=== PATIENT | female | born 1960 | race Caucasian/White ===

== ENCOUNTER 2018-03-14 08:36 | Day surgery (SDC) | payer OTHER ==
[~2018-03-14] VITALS: Ht 157.5 cm; Wt 70.3 kg
[2018-03-14] MEDS ORDERED: MIDAZOLAM 2 MG/2 ML VIAL ONE ×2 (10:02→10:21)
[2018-03-14] MEDS ORDERED: fentaNYL 0.05 MG/ML VIAL ONE (10:02)
[2018-03-14] MEDS ORDERED: LIDOCAINE 2% 100 MG/5 ML UJET TP ONE ×2 (10:02→10:27)
[2018-03-14] MEDS ORDERED: KETOROLAC 30 MG/ML VIAL ONE (10:02)
== END 2018-03-14 11:20 | disposition home or self-care (01) ==
LOC: MDS 08:36 → MMU 08:40 → MDS 11:20
PROVIDERS: ATTEND Internal Medicine Gastroenterology
DX: Z12.11 Encounter for screening for malignant neoplasm of colon (principal); D12.4 Benign neoplasm of descending colon; K29.50 Unspecified chronic gastritis without bleeding; K22.10 Ulcer of esophagus without bleeding; K44.9 Diaphragmatic hernia without obstruction or gangrene; K57.30 Diverticulosis of large intestine without perforation or abscess without bleeding; K21.9 Gastro-esophageal reflux disease without esophagitis; G43.909 Migraine, unspecified, not intractable, without status migrainosus; E66.3 Overweight; Z68.28 Body mass index [BMI] 28.0-28.9, adult; Z90.710 Acquired absence of both cervix and uterus; Z98.51 Tubal ligation status; Z85.028 Personal history of other malignant neoplasm of stomach
CPT/HCPCS: 36415; 43239; 45385; 86677; J2250; J3010; J7030; J1885